=== PATIENT | female | born 1960 | race Caucasian/White ===

== ENCOUNTER 2017-08-17 20:18 | Inpatient (IN) | payer BC ==
[~2017-08-17] VITALS: Ht 170.2 cm; Wt 71.3 kg
[2017-08-17 20:41] LABS: BASO % 0.3 % (0.0-2.0); EOS # 0.1 (0.0-0.7); EOS % 0.6 % (0-4.0); GRAN # 12.6 (1.4-6.5); GRAN % 83.2 % (42.2-75.2); HEMOGLOBIN 16.1 g/dl (12.5-16.0); LYMPH # 1.5 (1.2-3.4); LYMPH % 9.9 % (20.0-51.0); MEAN CELL VOLUME 91 fl (80.0-100.0); MEAN CORPUSCULAR HEMOGLOBIN 32 pg (27.0-31.0); MEAN CORPUSCULAR HGB CONC 35 g/dl (33.0-37.0); MEAN PLATELET VOLUME 9.8 fl (7.4-10.4); MONO # 0.9 (0.1-0.6); MONO % 5.7 % (1.7-9.3); PLATELET COUNT 267 K/mm3 (130-400); RED BLOOD COUNT 5.06 M/mm3 (4.10-5.30); REDCELL DISTRIBUTION WIDTH-CV 11.5 % (11.5-14.5)
[2017-08-17] MEDS ORDERED: VITAMIN D 50,1.25 MG PO (20:46)
[2017-08-17] MEDS ORDERED: TURMERIC500 MG PO (20:46)
[2017-08-17] MEDS ORDERED: PROBIOTIC FORMU1 CAP PO (20:48)
[2017-08-17] MEDS ORDERED: ADIPEX-P37.5 MG PO (20:49)
[2017-08-17 20:53] LABS: ALANINE AMINOTRANSFERASE 27 U/L (9-52); ALKALINE PHOSPHATASE 83 U/L (50-136); ANION GAP 14 mmol/L (7-16); AST,SGOT 23 U/L (15-37); BILIRUBIN,TOTAL 0.8 mg/dL (0.0-1.0); BLOOD UREA NITROGEN 22 mg/dL (7-17); CALCIUM 9.4 mg/dL (8.4-10.2); CARBON DIOXIDE 23 mmol/L (22-30); CHLORIDE 102 mmol/L (98-107); GLUCOSE 103 mg/dL (74-106); LIPASE 312 U/L (23-300); POTASSIUM 3.7 mmol/L (3.4-5.0); SODIUM 139 mmol/L (137-145); TOTAL PROTEIN 7.9 gm/dL (6.4-8.2)
[2017-08-17 20:56] LABS: C-REACTIVE PROTEIN < 0.5 mg/dL (0.0-0.9)
[2017-08-17 21:47] LABS: COLLECTION METHOD CLEAN CATCH
[2017-08-17 21:53] LABS: MUCOUS Present /lpf; PH 5 (5-8); SQUAMOUS EPITHELIAL 0-2 /hpf; URINE APPEARANCE Clear; URINE BACTERIA None Seen /hpf; URINE BILIRUBIN Negative (NEGATIVE); URINE BLOOD 1+ (NEGATIVE); URINE COLOR Yellow; URINE GLUCOSE Negative (NEGATIVE); URINE KETONE 2+ (NEGATIVE); URINE LEUKOCYTE ESTERASE Negative (NEGATIVE); URINE NITRATE Negative (NEGATIVE); URINE PROTEIN(semi-quant) Negative (NEGATIVE); URINE RBC 0-2 /hpf; URINE UROBILINOGEN Negative (NEGATIVE)
[2017-08-17 22:41] VITALS: BP 119/70; PULSE 73; TEMP 97.6
[2017-08-18] VITALS (11 sets, daily range): BP systolic 95–129; BP diastolic 51–79; PULSE 56–83; TEMP 98–98.4
[2017-08-19] VITALS (15 sets, daily range): BP systolic 85–116; BP diastolic 36–77; PULSE 68–104; TEMP 98.2–98.9
[2017-08-19 06:57] LABS: BASO % 0.2 % (0.0-2.0); EOS % 0.2 % (0-4.0); GRAN % 57.5 % (42.2-75.2); LYMPH # 1.6 (1.2-3.4); LYMPH % 29.8 % (20.0-51.0); MEAN CELL VOLUME 94 fl (80.0-100.0); MEAN CORPUSCULAR HGB CONC 34 g/dl (33.0-37.0); MEAN PLATELET VOLUME 10.7 fl (7.4-10.4); MONO # 0.6 (0.1-0.6); MONO % 12.1 % (1.7-9.3); PLATELET COUNT 192 K/mm3 (130-400); RED BLOOD COUNT 3.54 M/mm3 (4.10-5.30); REDCELL DISTRIBUTION WIDTH-CV 11.9 % (11.5-14.5)
[2017-08-19 07:08] LABS: HEMATOCRIT 33.2 % (37.0-47.0); HEMOGLOBIN 11.3 g/dl (12.5-16.0); MEAN CORPUSCULAR HEMOGLOBIN 32 pg (27.0-31.0)
[2017-08-19 07:45] LABS: ALBUMIN 2.8 gm/dL (3.5-5.0); BILIRUBIN,TOTAL 0.2 mg/dL (0.0-1.0); CALCIUM 8.1 mg/dL (8.4-10.2); CREATININE, serum 0.72 mg/dL (0.52-1.25); POTASSIUM 3.7 mmol/L (3.4-5.0); TOTAL PROTEIN 5.3 gm/dL (6.4-8.2)
[2017-08-19 09:26] LABS: ARTERIAL BLD GAS O2 SATURATION 95.7 % (92-100); ARTERIAL BLD GAS TCO2 CT 24.3; ARTERIAL BLOOD GAS BASE EXCESS -1.8 (-2-2); ARTERIAL BLOOD GAS HCO3 23.1 meq/L (22-26); ARTERIAL BLOOD GAS PCO2 39.7 mmHg (35-45); ARTERIAL BLOOD GAS pH 7.38 (7.35-7.45)
[2017-08-20 01:57] VITALS: BP 115/54; PULSE 81; TEMP 98.3
[2017-08-20 05:56] VITALS: BP 119/57; PULSE 70; TEMP 98.1
[2017-08-20 06:14] LABS: BASO % 0.5 % (0.0-2.0); EOS # 0.1 (0.0-0.7); EOS % 1.1 % (0-4.0); GRAN # 3.2 (1.4-6.5); GRAN % 51.5 % (42.2-75.2); HEMOGLOBIN 12.1 g/dl (12.5-16.0); LYMPH # 2.2 (1.2-3.4); LYMPH % 36.2 % (20.0-51.0); MEAN CELL VOLUME 94 fl (80.0-100.0); MEAN CORPUSCULAR HEMOGLOBIN 32 pg (27.0-31.0); MEAN CORPUSCULAR HGB CONC 34 g/dl (33.0-37.0); MEAN PLATELET VOLUME 10.1 fl (7.4-10.4); MONO # 0.6 (0.1-0.6); MONO % 10.4 % (1.7-9.3); PLATELET COUNT 199 K/mm3 (130-400); RED BLOOD COUNT 3.83 M/mm3 (4.10-5.30); REDCELL DISTRIBUTION WIDTH-CV 12.2 % (11.5-14.5)
[2017-08-20 06:18] LABS: HEMATOCRIT 36.1 % (37.0-47.0)
[2017-08-20 06:29] LABS: ALBUMIN 3.1 gm/dL (3.5-5.0); BILIRUBIN,TOTAL 0.5 mg/dL (0.0-1.0); CALCIUM 8.3 mg/dL (8.4-10.2); CREATININE, serum 0.69 mg/dL (0.52-1.25); POTASSIUM 4.2 mmol/L (3.4-5.0); TOTAL PROTEIN 5.6 gm/dL (6.4-8.2)
[2017-08-20 09:14] VITALS: PULSE 91; TEMP 97.4
[2017-08-20] MEDS ORDERED: NORCO 325 MG-7.1 TAB PO (10:45)
== END 2017-08-20 12:54 | disposition hospice, home (50) | DRG 419 ==
LOC: COL.ER 20:18 → SURG 21:16
PROVIDERS: Family Medicine; Surgery
PROC: 0FT44ZZ Resection of Gallbladder, Percutaneous Endoscopic Approach (ICD-10-PCS; principal; 2017-08-18 08:00)
DX: K80.00 Calculus of gallbladder with acute cholecystitis without obstruction (principal); F41.0 Panic disorder [episodic paroxysmal anxiety]; R10.2 Pelvic and perineal pain; R06.02 Shortness of breath
CPT/HCPCS: 99222; C9113; J1100; J1885; J1956; J2060; J2270; J2405; J2543; J2550; J2704; J3010; J7030; J7050; J7120

== ENCOUNTER → 2018-01-15 | Outpatient (CLI) | payer BC ==
[~2018-01-15] MED LIST: ADIPEX-P37.5 MG PO; NORCO 325 MG-7.1 TAB PO; PROBIOTIC FORMU1 CAP PO; TURMERIC500 MG PO; VITAMIN D 50,1.25 MG PO
== END ==
LOC: COL.RAD 11:15
DX: K57.30 Diverticulosis of large intestine without perforation or abscess without bleeding (principal); K68.9 Other disorders of retroperitoneum; Z90.49 Acquired absence of other specified parts of digestive tract; Z90.710 Acquired absence of both cervix and uterus
CPT/HCPCS: Q9967

== ENCOUNTER → 2018-01-16 | Outpatient (CLI) | payer BC | LOC: MC.RAD 13:54 | DX: N64.4 Mastodynia (principal); R07.89 Other chest pain ==

== ENCOUNTER 2018-08-06 13:28 | Observation (INO) | payer BC ==
[~2018-08-06] VITALS: Ht 170.2 cm; Wt 79.9 kg
[~2018-08-06 13:28] MED LIST changes: +BIO IDENTICAL IM; +DEXEDRINE10 MG PO
[2018-08-06 14:09] LABS: BASO % 0.5 % (0.0-2.0); EOS % 0.1 % (0-4.0); GRAN # 4.4 (1.4-6.5); GRAN % 57.6 % (42.2-75.2); HEMATOCRIT 41.3 % (37.0-47.0); HEMOGLOBIN 14.6 g/dl (12.5-16.0); LYMPH # 2.6 (1.2-3.4); LYMPH % 34.9 % (20.0-51.0); MEAN CELL VOLUME 89 fl (80.0-100.0); MEAN CORPUSCULAR HEMOGLOBIN 32 pg (27.0-31.0); MEAN CORPUSCULAR HGB CONC 35 g/dl (33.0-37.0); MEAN PLATELET VOLUME 9.6 fl (7.4-10.4); MONO # 0.5 (0.1-0.6); MONO % 6.6 % (1.7-9.3); PLATELET COUNT 280 K/mm3 (130-400); RED BLOOD COUNT 4.62 M/mm3 (4.10-5.30)
[2018-08-06 14:17] LABS: ALANINE AMINOTRANSFERASE 20 U/L (9-52); ALBUMIN 4.4 gm/dL (3.5-5.0); ALKALINE PHOSPHATASE 86 U/L (50-136); ANION GAP 10 mmol/L (7-16); AST,SGOT 27 U/L (15-37); BILIRUBIN,TOTAL 0.5 mg/dL (0.0-1.0); BLOOD UREA NITROGEN 14 mg/dL (7-17); CALCIUM 9.6 mg/dL (8.4-10.2); CARBON DIOXIDE 25 mmol/L (22-30); CHLORIDE 101 mmol/L (98-107); CREATININE, serum 0.72 mg/dL (0.52-1.25); GLUCOSE 102 mg/dL (74-106); LIPASE 89 U/L (23-300); POTASSIUM 3.5 mmol/L (3.4-5.0); SODIUM 135 mmol/L (137-145); TOTAL PROTEIN 7.7 gm/dL (6.4-8.2)
[2018-08-06 14:20] LABS: C-REACTIVE PROTEIN < 0.5 mg/dL (0.0-0.9)
[2018-08-06 14:27] LABS: TROPONIN-I < 0.012 ng/mL (0.000-0.035)
--- NOTE | 2018-08-06 18:37 | NUR ---
Patient arrived to floor from ER at 1830 accompanied by liam. Patient stated she is currently pain free. States she is nauseated only when she moves. She has been lying on her right side in a position. She has no needs, is afraid to move. States she is warm enough. Call light is within reach. remains at bedside.
[2018-08-06 21:45] VITALS: BP 105/52; PULSE 60; TEMP 97.4
[2018-08-06 21:51] VITALS: BP 105/52; PULSE 60; TEMP 97.4
[2018-08-06 22:19] LABS: COLLECTION METHOD CLEAN CATCH
[2018-08-06 22:25] LABS: MUCOUS Present /lpf; PH 6 (5-8); SQUAMOUS EPITHELIAL 0-2 /hpf; URINE APPEARANCE Clear; URINE BACTERIA None Seen /hpf; URINE BILIRUBIN Negative (NEGATIVE); URINE BLOOD Negative (NEGATIVE); URINE COLOR Yellow; URINE GLUCOSE Negative (NEGATIVE); URINE KETONE 1+ (NEGATIVE); URINE LEUKOCYTE ESTERASE Negative (NEGATIVE); URINE NITRATE Negative (NEGATIVE); URINE PROTEIN(semi-quant) Negative (NEGATIVE); URINE RBC 0-2 /hpf; URINE UROBILINOGEN Negative (NEGATIVE)
[2018-08-06 22:40] VITALS: BP 108/46; PULSE 55; TEMP 87
[2018-08-07] VITALS (12 sets, daily range): BP systolic 106–158; BP diastolic 47–80; PULSE 51–98; TEMP 97.5–98.4
--- NOTE | 2018-08-07 06:03 | NUR ---
Quiet night-- was medicated just twice for left sided chest pain, also Zofran given x2 for nausea-- did sleep for 3-4 hours, IV fluids at 75cc/hr.
--- NOTE | 2018-08-07 07:14 | NUR ---
Patient is awake and resting in bed, visitor is at bedside. Stated she continued to have some pain after last dose of medication but it wa not as bad. No nausea. Is laying on back. Denies further needs. Call light is within reach.
[2018-08-07 07:54] LABS: BASO % 0.7 % (0.0-2.0); EOS % 0.4 % (0-4.0); GRAN # 2.9 (1.4-6.5); GRAN % 53.4 % (42.2-75.2); HEMOGLOBIN 13.2 g/dl (12.5-16.0); MEAN CELL VOLUME 93 fl (80.0-100.0); MEAN CORPUSCULAR HEMOGLOBIN 32 pg (27.0-31.0); MEAN CORPUSCULAR HGB CONC 34 g/dl (33.0-37.0); MEAN PLATELET VOLUME 9.8 fl (7.4-10.4); MONO # 0.5 (0.1-0.6); MONO % 8.3 % (1.7-9.3); PLATELET COUNT 228 K/mm3 (130-400); RED BLOOD COUNT 4.18 M/mm3 (4.10-5.30); REDCELL DISTRIBUTION WIDTH-CV 12.2 % (11.5-14.5)
[2018-08-07 08:11] LABS: ALANINE AMINOTRANSFERASE 74 U/L (9-52); ALBUMIN 3.6 gm/dL (3.5-5.0); ALKALINE PHOSPHATASE 76 U/L (50-136); ANION GAP 4 mmol/L (7-16); AST,SGOT 71 U/L (15-37); BILIRUBIN,TOTAL 0.7 mg/dL (0.0-1.0); BLOOD UREA NITROGEN 9 mg/dL (7-17); CALCIUM 8.6 mg/dL (8.4-10.2); CARBON DIOXIDE 28 mmol/L (22-30); CHLORIDE 107 mmol/L (98-107); CHOLESTEROL 152 mg/dL (120-200); CHOLESTEROL RISK RATIO 2.6; CREATININE, serum 0.71 mg/dL (0.52-1.25); GLUCOSE 83 mg/dL (74-106); HDL CHOLESTEROL 57 mg/dL; LDL CHOLESTEROL 77 mg/dL; POTASSIUM 3.9 mmol/L (3.4-5.0); SODIUM 139 mmol/L (137-145); TOTAL PROTEIN 6.3 gm/dL (6.4-8.2); TRIGLYCERIDE 92 mg/dL
[2018-08-07 08:28] LABS: TROPONIN-I < 0.012 ng/mL (0.000-0.035)
--- NOTE | 2018-08-07 11:54 | NUR ---
Patient is to have CT today, radiology called and will come get her for test after 1445 as she had contrast yesterday and they have to wait 24 hours after recieving first dose.
--- NOTE | 2018-08-07 15:13 | NUR ---
SW student attempted to meet with the patient. SW will try back later.
--- NOTE | 2018-08-07 18:22 | NUR ---
Patient was assisted in ordering clear liquid tray. Had been complaining of neck and head pain. PRN tramadol given at 1730. Pain improved. Call light is within reach.
[2018-08-08] VITALS (11 sets, daily range): BP systolic 103–128; BP diastolic 41–73; PULSE 50–72; TEMP 97.6–98.6
--- NOTE | 2018-08-08 00:16 | NUR ---
Completed assessment and medication administration; PT denied further needs or discomforts at time of assessment; PT reported 7/10 pain; administered PRN pain medication; Lung CTAB, BS active x4, no further needs at time of exit; call light placed within reach; IV running D5 1/2 at 125ml/hr to LAC; Will continue to monitor. CDA
--- NOTE | 2018-08-08 02:41 | NUR ---
PT resting well in bed with IV D5 1/2 running at 125ml/hr to RFA; Reassessed pain and N/V post medication administration with reported improvement; No further need for readministration. PT resting at this time; No further needs assessed during rounds; Will continue to monitor. CDA
--- NOTE | 2018-08-08 05:20 | NUR ---
Surgical consent completed for EGD with possible biopsies; PT vebalized understanding and potential risks. PT declined blood and blood products if needed during the procedure. Consent placed on the front of the chart. CDA
[2018-08-08 06:15] LABS: BASO % 0.5 % (0.0-2.0); EOS # 0.1 (0.0-0.7); EOS % 1.3 % (0-4.0); GRAN # 2.7 (1.4-6.5); GRAN % 50.1 % (42.2-75.2); HEMOGLOBIN 12.4 g/dl (12.5-16.0); LYMPH # 2.2 (1.2-3.4); LYMPH % 39.7 % (20.0-51.0); MEAN CELL VOLUME 94 fl (80.0-100.0); MEAN CORPUSCULAR HEMOGLOBIN 32 pg (27.0-31.0); MEAN CORPUSCULAR HGB CONC 34 g/dl (33.0-37.0); MONO # 0.5 (0.1-0.6); MONO % 8.2 % (1.7-9.3); PLATELET COUNT 220 K/mm3 (130-400); RED BLOOD COUNT 3.93 M/mm3 (4.10-5.30); REDCELL DISTRIBUTION WIDTH-CV 11.9 % (11.5-14.5)
[2018-08-08 06:24] LABS: ALBUMIN 3.3 gm/dL (3.5-5.0); BILIRUBIN,TOTAL 0.5 mg/dL (0.0-1.0); CALCIUM 8.6 mg/dL (8.4-10.2); CREATININE, serum 0.63 mg/dL (0.52-1.25); HEMATOCRIT 36.9 % (37.0-47.0); POTASSIUM 3.7 mmol/L (3.4-5.0); TOTAL PROTEIN 5.9 gm/dL (6.4-8.2)
[2018-08-08 06:51] LABS: BILIRUBIN UNCONJUGATED 0.5 mg/dL (0.0-1.1)
--- NOTE | 2018-08-08 07:03 | NUR ---
Report given to NICK Moon. CDA
--- NOTE | 2018-08-08 07:32 | NUR ---
Pt alert and oriented this am. Pt rates pain 3/10 in epigastric. Pt consent has been signed for EGD this am. Magaly with perioperative here to get pt and report given and pt disconnected from IV fluids. Pt taken via gurney down for procedure.
--- NOTE | 2018-08-08 08:10 | NUR ---
Pt returned from EGD procedure. Pt alert and oriented. Pt requests pain medication for pain 11/10. Pt has some nausea reported and requests Zofran as well. Pt set up on post op vital signs. Breathing unlabored and lungs clear. Pt has call light in reach and denies further needs. Pt put back on fluids as ordered.
[2018-08-08] MEDS ORDERED: PROTONIX 40MG T40 MG PO (12:02)
[2018-08-08] MEDS ORDERED: ZOFRAN ODT4 MG PO (12:03)
[2018-08-08] MEDS ORDERED: MORPHINE 1515 MG/TAB PO (12:06)
[2018-08-08] MEDS ORDERED: ULTRAM 50MG TAB50 MG PO (12:06)
[2018-08-08] MEDS ORDERED: CARAFATE 1GM1 G PO (12:24)
--- NOTE | 2018-08-08 13:17 | NUR ---
SW and SW student attended clinical rounding and met with patient to discuss discharge planning. Patient lives in [facility] with her pablo. her PCP is Dr Perico Chester and she obtains her medications through [facility]. Patient was provided a DPOA at her last stay but has not completed it. Patient will dc home today with family support and no unmet discharge needs.
--- NOTE | 2018-08-08 14:40 | NUR ---
Pt resting in bed with lights off. Pt reports she still has a dull headache but pain is 2/10. Pt ate lunch without nausea or vomitting. Pt denies needs at this time and has call light in reach.
--- NOTE | 2018-08-08 16:15 | NUR ---
Pt given discharge instructions and education on diagnosis, discharge medications, follow up appts and pt verbalizes understanding. Pt IV dc'd and tip intact no infiltration and no redness noted. Pt still has some pain reported in abdomen but much better than it was this am. Pt belongings gathered and pt escorted via wheelchair to private car with spouse.
== END 2018-08-08 16:20 | disposition home or self-care (01) ==
LOC: COL.ER 13:28 → MEDICAL 17:34
PROVIDERS: Emergency Medicine; Physician Assistant; ADMIT Family Medicine
DX: R07.89 Other chest pain (principal); K29.30 Chronic superficial gastritis without bleeding; I10 Essential (primary) hypertension; R11.2 Nausea with vomiting, unspecified; R32 Unspecified urinary incontinence; R94.5 Abnormal results of liver function studies; Z85.51 Personal history of malignant neoplasm of bladder; Z90.49 Acquired absence of other specified parts of digestive tract; Z90.710 Acquired absence of both cervix and uterus; Z98.890 Other specified postprocedural states; G43.909 Migraine, unspecified, not intractable, without status migrainosus
CPT/HCPCS: A9500; C9113; G0378; J1170; J1200; J1630; J1650; J1885; J2060; J2270; J2405; J2704; J2765; J2785; J7030; Q9967

== ENCOUNTER → 2018-08-11 | Outpatient (CLI) | payer BC ==
[~2018-08-11] MED LIST changes: +CARAFATE 1GM1 G PO; +MORPHINE 1515 MG/TAB PO; +PROTONIX 40MG T40 MG PO; +ULTRAM 50MG TAB50 MG PO; +ZOFRAN ODT4 MG PO
== END ==
LOC: COL.RAD 06:45
DX: R07.89 Other chest pain (principal)
CPT/HCPCS: A9503

== ENCOUNTER → 2019-04-24 | Outpatient (CLI) | payer BC | LOC: COL.RAD 15:42 | DX: R53.83 Other fatigue (principal); R63.5 Abnormal weight gain; R10.2 Pelvic and perineal pain; Z79.890 Hormone replacement therapy; Z90.710 Acquired absence of both cervix and uterus ==

== ENCOUNTER → 2019-05-22 | Outpatient (CLI) | payer BC | LOC: MC.RAD 09:37 | DX: Z12.31 Encounter for screening mammogram for malignant neoplasm of breast (principal) ==

== ENCOUNTER 2021-06-27 07:40 | Day surgery (SDC) | payer BC ==
[~2021-06-27] VITALS: Ht 170.2 cm; Wt 81.5 kg
[2021-06-27] VITALS (9 sets, daily range): BP systolic 122–168; BP diastolic 72–113; PULSE 68–85; TEMP 98.4–98.9
--- NOTE | 2021-06-27 11:40 | NUR ---
1035 Pt returns from endo procedure via cart to [facility]. Pt allowed to remain on cart. Pt reports uncomfortable feeling of not being able to catch her breath. Monitors on and alarms set, VS set for q5 mins. VS all WNL and comsistant with preop VS. O2 saturation at 100%. Warm water and blankets provided. Report recieved from NICK Fraser. Continue to monitor pt in room. Endo RN and anesthesia in room. 1050 Pt taking water well. Ok to send pt home without eating per anestesia. Call light in reach, door open, monitors visible from nurses station. 1100 Pt reports decrease in symptoms. Ok to discharge home when pt reports return to base line discomfort per anesthesia. 1115 Pt reports return to baseline respiratory discomfort and would like to be discharged home. 1130 IV removed without complication. Reviewed discharge instructions, handed to spouse, answered questions to pt and spouse satisfaction. Instructed to dress and open door when ready for discharge. 1140 Transfered pt via wheel chair to personal vehicle to be driven home by . ? Discharge instructions given to pt. All questions answered to ? satisfaction. Handed to pt are a thank you card and discharge information. ? Pt transferred out of the hospital via wheelchair and ? assist, to private vehicle driven by ?.
== END 2021-06-27 11:40 | disposition home or self-care (01) ==
LOC: SDCO 07:40
DX: D12.2 Benign neoplasm of ascending colon (principal); K63.5 Polyp of colon; K64.0 First degree hemorrhoids; K57.30 Diverticulosis of large intestine without perforation or abscess without bleeding; R19.4 Change in bowel habit; F32.A Depression, unspecified; K92.1 Melena; Z90.710 Acquired absence of both cervix and uterus; Z79.899 Other long term (current) drug therapy
CPT/HCPCS: J0171; J2704; J7120